=== PATIENT | female | born 2000 | race Caucasian/White ===

== ENCOUNTER 2024-08-11 10:49 | Emergency (ER) | payer MEDICAID, SELFPAY ==
[2024-08-11 10:50] VITALS: BP 106/69; PULSE 57; RESP 14; TEMP 36.6; O2SAT 98; BMI 19.3
--- NOTE | 2024-08-11 11:29 | EX.ED.DYSGE1 ---
HPI History of Present Illness Chief Complaint: Weakness Informant: patient Onset/Context/Timing Onset: Days (5) Context: Gradual Onset Timing: Continuous Quality: Aching, fatigued Location: Generalized Worsened by: Certain movements Relieved by: Ibuprofen Narrative Narrative: Patient presents with possible Lyme disease. Patient states she has been feeling fatigued and achy over the past 5 days. Patient states it is generalized. Patient denies being bitten by a tick. Patient states she was walking near [place] where there were ticks. Patient states she noted a rash on her abdomen and up into her chest couple days ago but states this has resolved. Patient admits to some subjective chills. Patient admits to some nausea but denies any vomiting. Patient admits to a mild headache. PFSH PFSH Medical History no medical history no medical history Allergy/AdvReac Type Severity Reaction Status Date / Time Penicillins (PCN) Allergy RASH Verified 08/11/24 10:51 Surgical History (Updated 08/11/24 @ 11:[address] Garret Bryan DO) Hx of wisdom tooth extraction Social History Smoking Status: Never smoker ROS ROS ED Constitutional Constitutional ED: Reports chills and subjective; Denies fever(s) Eyes Eyes: Denies blurry vision or change in vision ENT ENT ED: Denies rhinorrhea or sore throat Cardiovascular Cardiovascular: Denies chest pain or palpitations Respiratory/Chest Respiratory/Chest: Denies cough or dyspnea Gastrointestinal Gastrointestinal: Reports nausea; Denies vomiting Genitourinary Genitourinary ED: Denies dysuria or hematuria Musculoskeletal Musculoskeletal: Denies back pain or neck pain Integumentary Reports rash; Denies abscess Neurologic Neurologic: Reports headache(s); Denies weakness Allergic/Immunologic Allergic/Immunologic ED: Denies mouth swelling or urticaria EXAM Physical Exam Const Vital Signs: 08/11/24 10:50 08/11/24 12:50 Temperature 98 F 97.1 F L Temperature Source Temporal Temporal Pulse Rate 57 L 84 Respiratory Rate 14 16 Blood Pressure 106/69 101/74 Blood Pressure Mean 81 83 Pulse Ox 98 100 Oxygen Delivery Method Room Air Positive well nourished and well developed General Appearance ED: well developed and NAD HEENT Reports moist mucous membranes Neck supple and no JVD Resp normal respiratory effort and clear to auscultation bilaterally Cardio regular rate and regular rhythm GI non-tender and non-distended Palpation: soft Neuro oriented x3, CN's II-XII intact bilaterally and no sensory deficits noted Sensorium / Orientation: alert Motor Exam: strength 5/5 throughout Psych mental status grossly normal MDM MDM MDM Narrative Medical decision making narrative: Differential diagnosis viral illness, electrolyte abnormality, dehydration, and Lyme disease. CBC will be obtained to assess for leukocytosis or anemia. Basic metabolic profile will be obtained to assess for electrolyte abnormality and renal function. Lyme titers will be obtained to assess for Lyme disease. COVID-19, influenza, and RSV PCR will be obtained to assess for viral illness. Lab Data Attestation: I reviewed the patient's lab results. Lab results narrative: CBC was reviewed. Hemoglobin was low at 11.9 hematocrit was 35.5. Platelets were slightly low at 130. The remainder is within normal limits. Basic metabolic profile was reviewed and was within normal limits. Serum hCG was reviewed and was negative. COVID-19 PCR was reviewed and was negative. Influenza PCR was reviewed and was negative for influenza A and influenza B. RSV PCR was reviewed and was negative. Labs: Laboratory Results - last 24 hr 08/11/24 12:24 WBC 4.9 RBC 3.85 L Hgb 11.9 L Hct 35.5 L MCV 92.2 MCH 30.9 MCHC 33.5 RDW Std Deviation 45.2 H RDW Coeff of Mg 13.3 Plt Count 130 L MPV 10.1 Immature Gran % (Auto) 0.200 Neut % (Auto) 32.9 L Lymph % (Auto) 59.6 H [place] % (Auto) 5.3 Eos % (Auto) 1.4 Baso % (Auto) 0.6 Absolute Neuts (auto) 1.6 L Absolute Lymphs (auto) 2.93 Nucleated RBC % 0 Differential Comment SCANNED Atypical Lymphocytes 1+ Sodium 141 Potassium 4.4 Chloride 108 Carbon Dioxide 24.5 Anion Gap 9 BUN 10 Creatinine 0.57 L Estim Creat Clear Calc 114.61 Est GFR (MDRD) Non-Af 132 BUN/Creatinine Ratio 16.8 Glucose 97 Calcium 9.1 Serum , Qual NEGATIVE Treatment and Re-Evaluation :: Patient was given IV fluids. Patient was advised that the Lyme test was a send out test. Patient was advised to call back again in a couple days to get the results of this test. However, since there was no tick noted, and there is no rash consistent with erythema migrans, I did not feel that this is related to Lyme disease. Patient was instructed to drink plenty of fluids. Patient was instructed to follow-up with her primary care physician in 5 to 7 days. Patient was instructed to return if worse in any way. Patient understood and was agreeable with the plan. All questions were answered. Discharge Plan Triage Chief Complaint: Weakness ED Provider: Garret Bryan Dx/Rx/DC Orders Clinical Impression: Fatigue Instructions: ED Weakness Uncertain Cause Primary Care Provider: Care Physician,No Primary Referrals: Care Physician,No Primary [Primary Care Provider] - Print Language: Slovenian Disposition Disposition: Home, Self Care
[2024-08-11] MEDS: 0.9% Normal Saline (1000mL) 1,000 ML 1000 ML IV (12:23)
[2024-08-11 12:35] LABS: Differential Indicated SCAN CRITERIA MET; Hematocrit 35.5 % (37-47); Hemoglobin 11.9 g/dL (12.0-15.0); Immature Granulocytes Count 0.010 X10^3/uL (0.0-0.0); Mean Corp Hgb Conc 33.5 g/dL (32-36); Mean Corpuscular Volume 92.2 fL (81-99); Mean Platelet Vol. 10.1 fl (6.2-12.0); NRBC Flagged by Analyzer 0 % (0-5); POSITIVE MORPHOLOGY YES; Platelet Count 130 K/mm3 (150-450); RBC Distribution Width CV 13.3 % (11.6-14.6); RBC Distribution Width SD 45.2 fl (35.1-43.9); Red Blood Count 3.85 M/mm3 (4.2-5.4); White Blood Count 4.9 K/mm3 (4.4-11.0)
[2024-08-11 12:50] VITALS: BP 101/74; PULSE 84; RESP 16; TEMP 36.2; O2SAT 100
[2024-08-11 12:57] LABS: Differential Comment SCANNED
[2024-08-11 13:07] LABS: Internal QC Validated? YES +Cl - CLEAR BKGD; Pregnancy, Serum, hCG Quali. NEGATIVE Negative; Record Kit Lot#, Serum Preg. 947241
[2024-08-11 13:11] LABS: Anion Gap 9 (5-15); BUN 10 mg/dL (4-19); BUN/Creat Ratio 16.8 RATIO (10-20); Calcium,Total 9.1 mg/dL (7.6-11.0); Carbon Dioxide 24.5 mmol/L (21.0-32.0); Chloride 108 mmol/L (98-108); Estimated Creatinine Clearance 114.61 ml/min (50-250); Glucose 97 mg/dL (70-99); Potassium 4.4 mmol/L (3.3-5.1)
[2024-08-11 15:00] VITALS: BP 98/74; PULSE 74; RESP 16; TEMP 36.9; O2SAT 100
[2024-08-14 11:07] LABS: Lyme Scn Total Ab w/Rflx Negative (Negative)
== END 2024-08-11 15:00 | disposition home or self-care (01) ==
PROVIDERS: Emergency Provider Emergency Medicine; Visit Provider Emergency Medicine
DX: R53.1 Weakness (principal); R53.83 Other fatigue
CPT/HCPCS: 80048; 84703; 85025; 86618; 87631; 99283